=== PATIENT | male | born 1960 | race Caucasian/White ===

== ENCOUNTER 2020-08-11 14:00 | Emergency (ER) | payer MEDICARE ==
[~2020-08-11 14:00] MED LIST: ADULT LOW DOSE81 MG PO; ATORVASTATIN CA20 MG PO; CYCLOBENZAPRINE10 MG PO; FENOFIBRATE145 MG PO; IBUPROFEN400 MG PO; IMDUR ER TAB 3030 MG PO; LANTUS INS100 UTS/M1 SC; LISINOPRIL10 MG PO; LISINOPRIL40 MG PO; LOPRESSOR 25 MG25 MG PO; LOPRESSOR100 MG PO; METFORMIN HCL1000 MG PO; NESINA25 MG PO; NITROGLYCERIN0.4 MG SL; PROTONIX40 MG PO
[2020-08-11 15:51] LABS: HEMOGLOBIN 17.2 gm/dl (14.0-17.5); RED BLOOD COUNT 5.49 M/UL (4.20-5.50); WHITE BLOOD COUNT 9.7 K/UL (4.5-11.0)
[2020-08-11 16:12] LABS: BUN/CREATININE RATIO 7 (0-10)
[2020-08-11] MEDS ORDERED: ASPIRIN CHEWABL81 MG PO (17:02)
== END 2020-08-11 17:25 | disposition home or self-care (01) ==
LOC: ER1 14:00
PROVIDERS: Emergency Medicine
DX: R07.9 Chest pain, unspecified (principal); E11.9 Type 2 diabetes mellitus without complications
CPT/HCPCS: 71046; 80053; 82550; 82553; 83874; 84484; 85025; 85379; 93005; 99285

== ENCOUNTER 2020-11-01 14:06 | Emergency (ER) | payer MEDICARE ==
[~2020-11-01 14:06] MED LIST changes: +ASPIRIN CHEWABL81 MG PO
[2020-11-01 14:32] LABS: RED BLOOD COUNT 6.34 M/UL (4.20-5.50); WHITE BLOOD COUNT 11.6 K/UL (4.5-11.0)
[2020-11-01 14:53] LABS: HEMOGLOBIN 19.4 gm/dl (14.0-17.5)
[2020-11-01 15:02] LABS: BUN/CREATININE RATIO 12 (0-10)
[2020-12-28] MEDS ORDERED: AMITRIPTYLINE H25 MG PO (15:09)
[2020-12-28] MEDS ORDERED: KLONOPIN0.5 MG PO (15:10)
[2020-12-28] MEDS ORDERED: ZETIA10 MG PO (15:10)
[2020-12-28] MEDS ORDERED: ZESTRIL 40 MG T40 MG PO (15:11)
[2020-12-28] MEDS ORDERED: DRISDOL1250 MCG PO (15:12)
[2020-12-28] MEDS ORDERED: LOPRESSOR100 MG PO (15:12)
[2020-12-28] MEDS ORDERED: CRESTOR20 MG PO (15:13)
[2020-12-28] MEDS ORDERED: ZANAFLEX 4 MG TA4 MG PO (15:13)
[2020-12-28] MEDS ORDERED: BUSPAR 10MG10 MG PO (15:13)
[2020-12-28] MEDS ORDERED: SOLIQUA 100 UNIT3 ML SC (15:34)
[2020-12-28] MEDS ORDERED: ACETAMINOPHEN500 MG PO (15:35)
[2020-12-28] MEDS ORDERED: IBU-200200 MG PO (15:36)
[2020-12-28] MEDS ORDERED: LIDOCAINE1 EAC1 EXT (15:38)
[2020-12-28] MEDS ORDERED: VITAMIN D325 MCG PO (15:38)
[2020-12-28] MEDS ORDERED: ATORVASTATIN CA20 MG PO (15:44)
== END 2020-11-01 21:50 | disposition home or self-care (01) ==
LOC: ER1 14:06
PROVIDERS: Family Medicine
DX: T67.5XXA Heat exhaustion, unspecified, initial encounter (principal); E11.65 Type 2 diabetes mellitus with hyperglycemia; I95.9 Hypotension, unspecified; F41.0 Panic disorder [episodic paroxysmal anxiety]; E87.5 Hyperkalemia; R00.0 Tachycardia, unspecified; Z20.822 Contact with and (suspected) exposure to COVID-19
CPT/HCPCS: 0240U; 71045; 80048; 80053; 80307; 82550; 82553; 82962; 83874; 84132; 84439; 84443; 84484; 85025; 93005; 96374; 96375; 99285; J1940; J2060; J7030

== ENCOUNTER → 2021-07-07 | Day surgery (SDC) | payer MEDICARE ==
[~2021-07-07] MED LIST changes: +ACETAMINOPHEN500 MG PO; +AMITRIPTYLINE H25 MG PO; +BENTYL 10MG CAP10 MG PO; +BUSPAR 10MG10 MG PO; +CLARITIN10 M2 PO; +CRESTOR20 MG PO; +DRISDOL1250 MCG PO; +IBU-200200 MG PO; +KLONOPIN0.5 MG PO; +LIDOCAINE1 EAC1 EXT; +PRAVASTATIN SOD20 MG PO; +SOLIQUA 100 UNIT3 ML SC; +VITAMIN D325 MCG PO; +ZANAFLEX 4 MG TA4 MG PO; +ZESTRIL 40 MG T40 MG PO; +ZETIA10 MG PO
== END | disposition home or self-care (01) ==
LOC: OR 06:06
PROVIDERS: Surgery
PROC: 0DJD8ZZ Inspection of Lower Intestinal Tract, Via Natural or Artificial Opening Endoscopic (ICD-10-PCS; principal; 2021-07-07 08:15)
DX: R19.7 Diarrhea, unspecified (principal); Z20.822 Contact with and (suspected) exposure to COVID-19; R63.4 Abnormal weight loss; K64.0 First degree hemorrhoids; B19.20 Unspecified viral hepatitis C without hepatic coma; K74.60 Unspecified cirrhosis of liver; K21.9 Gastro-esophageal reflux disease without esophagitis; I12.9 Hypertensive chronic kidney disease with stage 1 through stage 4 chronic kidney disease, or unspecified chronic kidney disease; E11.22 Type 2 diabetes mellitus with diabetic chronic kidney disease; N18.30 Chronic kidney disease, stage 3 unspecified; E11.42 Type 2 diabetes mellitus with diabetic polyneuropathy; J44.9 Chronic obstructive pulmonary disease, unspecified; E78.5 Hyperlipidemia, unspecified; M06.9 Rheumatoid arthritis, unspecified; F17.210 Nicotine dependence, cigarettes, uncomplicated; Z68.32 Body mass index [BMI] 32.0-32.9, adult; Z79.4 Long term (current) use of insulin; Z79.82 Long term (current) use of aspirin; Z79.899 Other long term (current) drug therapy
CPT/HCPCS: 82962; J2704; J7030

== ENCOUNTER → 2021-09-23 | Outpatient (CLI) | payer MEDICARE ==
[2021-09-24 20:12] LABS: HEPATITIS C QUANTITATION HCV Not Detected IU/mL (.)
== END ==
LOC: LAB 13:35
PROVIDERS: Nurse Practitioner Family
DX: M54.2 Cervicalgia (principal); M25.512 Pain in left shoulder; M25.511 Pain in right shoulder; B19.20 Unspecified viral hepatitis C without hepatic coma; M25.712 Osteophyte, left shoulder; M47.812 Spondylosis without myelopathy or radiculopathy, cervical region
CPT/HCPCS: 36415; 72040; 73030; 87522